=== PATIENT | female | born 1995 | race Caucasian/White ===

== ENCOUNTER 2022-08-11 14:36 | Outpatient (CLI) | payer OTHER | END 2022-08-11 14:37 | disposition home or self-care (01) | LOC: BICULT 14:36 | PROVIDERS: ATTEND Nurse Practitioner Women's Health | DX: Z34.82 Encounter for supervision of other normal pregnancy, second trimester (principal); Z3A.26 26 weeks gestation of pregnancy | CPT/HCPCS: 76805 ==